=== PATIENT | female | born 1965 | race Caucasian/White ===

== ENCOUNTER → 2016-03-31 | Outpatient (CLI) | payer OTHER ==
[~2016-03-31] MED LIST: IBUP-1050 PO
--- NOTE | 2016-03-31 13:25 | MAMMOGRAPHY REPORT ---
ULTRASOUND OF RIGHT BREAST: 03/31/2016 CLINICAL HISTORY: 50-year-old woman called back from screening mammography for a lobulated 6.1 mm ma ss in the medial right breast. No family history of breast cancer. COMPARISON: Comparison is made to exams dated: 12/19/2014 mammogram, 11/21/2013 mammogram - [facility], 06/03/2007 mammogram, 04/08/2004 mammogram - [facility], and 2016 mammogram - [facility]. FINDINGS: Real-time high-resolution sonographic evaluation was performed in the medial right breast . In the 3:00 periareolar breast, there is a microlobulated isoechoic solid mass measuring 3.6 x 2. 7 x 5.5 mm. No significant increased internal vascularity. An oval parallel circumscribed hypoecho ic solid versus cystic mass is identified in the 3:00 right breast, 1 cm from the nipple, measuring 5.2 x 1.6 x 2.7 mm. A microlobulated hypoechoic solid versus cystic mass is identified in the 2:00 right breast, 2 cm from the nipple, measuring 5.3 x 2.3 x 3.3 mm. A benign anechoic simple cyst is seen in the 12:00 right breast, 3 cm from the nipple, measuring 3.6 x 2.4 x 5.5 mm. Ultrasound-guid ed core needle biopsy is recommended for the solid mass in the 3:00 periareolar right breast and als o the indeterminate microlobulated solid versus cystic mass in the 2:00 right breast. IMPRESSION: ACR BI-RADS CATEGORY 4B: INTERMEDIATE SUSPICION FOR MALIGNANCY - FOLLOW-UP RECOMMENDED 1. Ultrasound guided core needle biopsy is recommended for a solid microlobulated 5.5 mm mass in th e 3:00 periareolar right breast, and for another solid versus cystic hypoechoic microlobulated 5.3 m m mass in the 2:00 right breast, 2 cm from the nipple. Correlation with post procedure mammograms i s recommended to assess for mammographicsonographic correlation of the mass identified on the 03/23 screening mammogram. 2. Pending benign pathology results, may follow-up the other more cystic-appearing mass in the 3:00 right breast, 1 cm from the nipple in 6 months. 3. In anechoic benign simple cyst is identified in the 12:00 right breast incidentally on ultrasoun d. These results and recommendations were discussed with the patient at the time of the exam. She tent atively scheduled the right breast biopsies prior to leaving our department. Esperanza August M.D. ay/:03/31/2016 09:39:25 Seed Sales Manager: Dr. Esperanza August, [facility] letter sent: Abnormal 4/5 BI-RADS Code: ACR BI-RADS Category 4B: Intermediate Suspicion For Malignancy
== END | disposition home or self-care (01) ==
LOC: C.MAMM 08:14
PROVIDERS: ATTEND Nurse Practitioner Adult Health
DX: N63 Unspecified lump in breast (principal); N60.01 Solitary cyst of right breast

== ENCOUNTER → 2016-04-07 | Outpatient (CLI) | payer OTHER ==
--- NOTE | 2016-04-07 10:32 | Discharge Instructions ---
Discharge Instructions Procedure Procedure Date: Apr 07, 2016. Reason for visit: Right Masses. Discharge Discharge Date: Apr 07, 2016. Discharge Diagnosis: post right breast ultrasound guided core biopsy and cyst aspiration Instructions Activity Recommendations: Additional Limitations (see below) Return to School/Work: no limitations Recommended Home Diet: No Limitations Provider Instructions: ACTIVITY RECOMMENDATIONS: * No lifting, pushing, pulling or exercising the affected side for three days. RETURN TO SCHOOL/WORK: * You may return to work/school after the procedure, but do not perform any strenuous activities for 24 to 48 hours. MEDICATIONS: * Tylenol (two 325 mg) every four to six hours if needed for mild pain (if not allergic to Tylenol). DIET: * Resume previous diet. SPECIAL CARE INSTRUCTIONS: * Keep biopsy site dry for 24 hours. May shower after 24 hours, but do not soak (bathe) incision. * May remove Tegaderm (plastic patch) tomorrow AFTER showering. * Leave the steri-strips on for one week. Allow the steri-strips to fall off by themselves. If not off after one week, you may remove them. You may place a Bandaid crosswise over the strips, if desired. * Apply ice 10 minutes on and 10 minutes off as needed. * Wear a bra at bedtime to sleep more comfortably for 2-3 days. * Your referring physician should have the results after approximately 5 to 7 business days. * Call for unusual bleeding, fever, drainage, etc or if you have any questions call [phone] during normal business hours or after hours call Dr August, . FOLLOW UP VISIT: Follow-up with Referring Physician as scheduled. Allergies Coded Allergies: Sulfa Antibiotics (Verified Allergy, Unknown, hives, 07/14/15) Karson Bryan Recommendations: Call your doctor if: * Temperature above 101 degrees * Pain not relieved by pain medicine ordered * There is increased drainage or redness from any incision * You have any unanswered questions or concerns. Your Doctors Instructions noted above were prepared by provider Esperanza August. Patient Signature Section: Patient Instructions Signature Page Tabby Douglass Patient (or Guardian) Signature/Date: I have read and understand the instructions given to me by my caregivers. Caregiver/RN/Doctor Signature/Date: The above-named patient and/or guardian has received patient instructions on this date. + Original Patient Signature Page (only) stays with chart. Please make copy for patient.
--- NOTE | 2016-04-07 13:29 | MAMMOGRAPHY REPORT ---
ASPIRATION: 04/07/2016 CLINICAL HISTORY: Solid versus cystic mass in the 2:00 left breast. Patient presents for attempted cyst aspiration versus core biopsy. Please refer to the report from left breast ultrasound-guided core biopsy performed at the same time for full detail. IMPRESSION: ASPIRATION Please refer to the report from left breast ultrasound-guided core biopsy performed at the same time for full detail. Esperanza August M.D. ay/:04/07/2016 12:18:48 Watermelon Inspector: Cassi SHIELDS)(M), [facility]
--- NOTE | 2016-04-07 13:29 | MAMMOGRAPHY REPORT ---
UNILATERAL RIGHT DIGITAL DIAGNOSTIC MAMMOGRAM TOMOSYNTHESIS: 04/07/2016 CLINICAL HISTORY: Status post right breast cyst aspiration and ultrasound-guided core biopsy. Please refer to the report from right breast ultrasound guided core biopsy performed at the same mely e for full detail. IMPRESSION: ACR-BI-RADS CATEGORY 3: PROBABLY BENIGN Please refer to the report from right breast ultrasound guided core biopsy performed at the same mely e for full detail. Approximately 10% of breast cancers are not detected with mammography. A negative mammographic repor t should not delay biopsy if a clinically suggestive mass is present. Esperanza August M.D. ay/:04/07/2016 11:03:40 Tailman: Cassi SHIELDS)(M), [facility] BI-RADS Code: ACR-BI-RADS Category 3: Probably Benign
--- NOTE | 2016-04-07 13:29 | MAMMOGRAPHY REPORT ---
THIS REPORT HAS BEEN AMENDED. MULTIPLE ULTRASOUND GUIDED BIOPSIES RIGHT BREAST: 04/07/2016 CLINICAL HISTORY: 50-year-old woman presents for ultrasound-guided core biopsy of indeterminate mass es in the 3:00 periareolar right breast and 2:00 right breast, 2 cm from the nipple. COMPARISON: Comparison is made to exams dated: 03/31/2016 ultrasound, 03/23/2016 mammogram, 5 mammogram, and 11/21/2013 mammogram - [facility]. PATIENT CONSENT: The procedure, risks and benefits were discussed with the patient and informed writ ten consent was obtained. Specific risks to this procedure include: bleeding, infection, puncture of adjacent structure, nontarget biopsy, sampling error, metal allergy and medication reaction. PROCEDURE DESCRIPTION: A time out was performed and the right breast was agreed as the site of biops y. First repeat targeted ultrasound was performed in the 2:00 and 3:00 axes of the right breast to reev aluate the masses as previously described. The lobulated parallel mass in the 2:00 right breast kalyan ears more anechoic compared to the ultrasound dated 03/31/2016, and thin internal septations are jama ntified. This suggests that it represents a cyst and ultrasound guided cyst aspiration will be atte mpted prior to core biopsy. The isoechoic lobulated solid mass in the 3:00 periareolar right breast is again identified and appears similar to the prior exam. Ultrasound guided core biopsy will be p erformed. The skin was prepped and draped in the usual sterile fashion. The cystic appearing nearly anechoic m ass in the 2:00 right breast was identified. 1% buffered lidocaine without epinephrine was administ ered subcutaneously and intraparenchymally as local anesthesia. A 22-gauge needle was then advanced into the mass and aspiration was performed, demonstrating complete and prompt resolution of the mas s, confirming cystic nature. The fluid was clear and straw-colored, therefore discarded. Then the solid mass in the 3:00 periareolar/subareolar right breast was identified and targeted for biopsy. 1% buffered lidocaine without epinephrine was administered as local anesthesia. No epineph rine was utilized given the location directly under the nipple. A small skin incision was made in t he breast. Then, 3 samples were obtained with a 14-gauge achieve biopsy device. Due to bleeding, t he lesion became obscured after the third sample and then a metallic marker was placed at the biopsy site. The samples were sent to the pathology department in an appropriately labeled container. Postproced ure right CC and ML tomosynthesis images were performed. Based on the CC view, there is resolution of the 6 mm mammographic mass in question, within the medial middle one third of the breast. This c onfirms that this correlated with the aspirated cyst in the 2:00 axis. A new ribbon-shaped metallic biopsy marker is seen in the subareolar right breast and there is surrounding skin thickening, like ly secondary to lidocaine administration. No obvious mass is identified, but the mass seen on ultra sound was not definitely seen on the prior diagnostic mammogram images either. Pending benign patho logy results, would recommend follow-up right mammograms including tomosynthesis images and repeat t argeted ultrasound to ensure stability in 6 months. IMPRESSION: ULTRASOUND GUIDED BIOPSY Status post ultrasound-guided cyst aspiration in the 2:00 right breast, and ultrasound-guided core b iopsy of an indeterminate solid mass in the 3:00 periareolar/subareolar right breast. Ribbon-shaped metallic biopsy marker was placed at the site of the core biopsy. Pending benign pathology results, follow-up diagnostic right mammography and repeat targeted ultraso und is recommended to ensure stability other solid versus cystic masses in the 2:00 and 3:00 right b reast, as well as to reevaluate the biopsied mass in the 3:00 periareolar/subareolar right breast. The patient will receive notification of the biopsy results from her referring physician. Esperanza August M.D. ay/:04/07/2016 12:29:31 Waste Water Operator: Cassi SHIELDS)(Josie), [facility] AMENDMENT: 04/16/2016 Esperanza August M.D. Pathology from ultrasound-guided core needle biopsy in the 3:00 periareolar/subareolar right breast yielded benign breast tissue. Negative for in situ and invasive carcinoma. The comment section of the pathology report "the appearance is very vaguely fibroadenomatoid but may simply represent benig n breast tissue with slightly dense stroma". The pathology results are concordant with the imaging appearance, as the mass in the 3:00 axis could represent a fibroadenoma or focal stromal fibrosis ba sed on imaging. Nevertheless, a short interval follow-up right mammogram including tomosynthesis im ages and repeat targeted ultrasound is recommended to ensure stability in 6 months.
== END | disposition home or self-care (01) ==
LOC: C.MAMM 09:04
PROVIDERS: ATTEND Nurse Practitioner Adult Health
DX: N63 Unspecified lump in breast (principal)

== ENCOUNTER → 2016-04-09 | Outpatient (CLI) | payer OTHER | END | disposition home or self-care (01) | LOC: C.LAB 10:06 | PROVIDERS: ATTEND Nurse Practitioner Adult Health | DX: Z12.11 Encounter for screening for malignant neoplasm of colon (principal) ==

== ENCOUNTER → 2016-10-14 | Outpatient (CLI) | payer OTHER ==
--- NOTE | 2016-10-14 12:24 | MAMMOGRAPHY REPORT ---
UNILATERAL RIGHT DIGITAL DIAGNOSTIC MAMMOGRAM TOMOSYNTHESIS WITH CAD AND TARGETED RIGHT ULTRASOUND: CLINICAL HISTORY: History of ultrasound-guided biopsy of a right 3:00 breast mass March 2016 which yielded benign pathology. Also status post aspiration of a right 2:00 breast cyst at that time. The patient presents for short interval follow-up. TECHNIQUE: Breast tomosynthesis in addition to standard 2D mammography was performed. Current study was also evaluated with a Computer Aided Detection (CAD) system. Right CC and MLO 2-D and tomosynthe sis images were obtained. COMPARISON: Comparison is made to exams dated: 04/07/2016 aspiration, 04/07/2016 mammogram, 04/07/2016 ultrasound biopsy, 03/31/2016 ultrasound, 03/23/2016 mammogram, and 12/19/2014 mammogram - [facility]. BREAST COMPOSITION: The tissue of the right breast is heterogeneously dense, which may obscure small masses. FINDINGS: A biopsy marker clip is seen within the right medial anterior breast from prior benign ult rasound guided biopsy. There is a lobulated circumscribed 6 mm mass within the right upper inner susan drant at approximately 2 to 3:00, which is stable to slightly decreased compared to the March 2016 exam. The remainder of the right breast is stable compared to prior exams, without suspicious masses , calcifications, or areas of architectural distortion noted. Scattered benign-appearing calcificati ons are stable. Targeted ultrasound was performed of the right breast in the region of the previously seen masses. A n oval circumscribed anechoic benign simple cyst measuring 4 x 5 mm is seen within the right 3:00 per iareolar breast. In the right breast at 2:00, 3 cm from the nipple, there is an oval circumscribed a nechoic mass with a few thin internal septations measuring 5 x 3 x 4 mm. This is stable in size comp ared to the March 2016 ultrasound where the mass measured 5 x 2 x 3 mm. This corresponds with the mammographic mass; this mass was previously aspirated to completion March 2016 and is therefore con sistent with a benign cyst which has reaccumulated. Another anechoic benign cyst measuring 4 x 5 mm is seen within the right breast at 1:00, 4 cm from the nipple. No suspicious solid masses were evide nt. IMPRESSION: ACR BI-RADS CATEGORY 2: BENIGN, TARGETED ULTRASOUND ACR BI-RADS CATEGORY 2: BENIGN Small benign cysts in the right 1 to 3:00 breast. The previously aspirated right 2:00 breast cyst menchaca s reaccumulated; given that it previously aspirated to completion, it is consistent with a benign cys t. There is no mammographic or targeted sonographic evidence of malignancy. Return to annual mammogr am screening schedule is recommended, due March 2017. The patient has been verbally notified of th e results. Approximately 10% of breast cancers are not detected with mammography. A negative mammographic report should not delay biopsy if a clinically suggestive mass is present. Nisreen Miranda M.D. ah/:10/14/2016 11:15:20 Mutuel Cashier: Polly ENCINAS(Kristen)(M), [facility] letter sent: Normal 1/2 BI-RADS Code: ACR BI-RADS Category 2: Benign Ultrasound BI-RADS: ACR BI-RADS Category 2: Benign
== END | disposition home or self-care (01) ==
LOC: C.MAMM 10:05
PROVIDERS: ATTEND Nurse Practitioner Adult Health
DX: R92.8 Other abnormal and inconclusive findings on diagnostic imaging of breast (principal); N64.89 Other specified disorders of breast

== ENCOUNTER → 2017-01-04 | Outpatient (CLI) | payer OTHER | END | disposition home or self-care (01) | LOC: C.MAMM 07:50 | PROVIDERS: ATTEND Nurse Practitioner Adult Health | DX: M81.0 Age-related osteoporosis without current pathological fracture (principal); M85.851 Other specified disorders of bone density and structure, right thigh ==

== ENCOUNTER → 2017-03-31 | Outpatient (CLI) | payer OTHER ==
[2017-03-31 10:29] LABS: BLOOD UREA NITROGEN 13 mg/dl (7-18); CALCIUM 9.1 mg/dl (8.5-10.1); CARBON DIOXIDE 30 mmol/L (21-32); CREATININE 0.76 mg/dl (0.60-1.20); GLUCOSE 87 mg/dl (70-99); POTASSIUM 4.2 mmol/L (3.5-5.1); SODIUM 137 mmol/L (136-145)
[2017-03-31 10:34] LABS: CHOLESTEROL 181 mg/dl (0-200); LDL CHOLESTEROL CALCULATED 76 mg/dl
== END | disposition home or self-care (01) ==
LOC: C.LAB 06:13
PROVIDERS: ATTEND Family Medicine
DX: Z00.00 Encounter for general adult medical examination without abnormal findings (principal); Z11.59 Encounter for screening for other viral diseases; Z13.220 Encounter for screening for lipoid disorders; M81.0 Age-related osteoporosis without current pathological fracture

== ENCOUNTER → 2017-04-09 | Outpatient (CLI) | payer OTHER ==
--- NOTE | 2017-04-12 07:41 | MAMMOGRAPHY REPORT ---
BILATERAL DIGITAL SCREENING MAMMOGRAM TOMOSYNTHESIS WITH CAD: 04/09/2017 CLINICAL HISTORY: Routine screening. Patient has no complaints. TECHNIQUE: Breast tomosynthesis in addition to standard 2D mammography was performed. Current study was also evaluated with a Computer Aided Detection (CAD) system. COMPARISON: Comparison is made to exams dated: 10/14/2016 ultrasound, 04/07/2016 aspiration, 04/07/2016 mammogram, 04/07/2016 ultrasound biopsy, 03/31/2016 ultrasound, and 03/23/2016 mammogram - [facility]. BREAST COMPOSITION: The tissue of both breasts is heterogeneously dense, which may obscure small mas ses. FINDINGS: No suspicious masses, calcifications, or areas of architectural distortion are noted in ei ther breast. There has been no significant interval change compared to prior exams. Bilateral benign -appearing calcifications are again noted. A biopsy marker clip is again noted within the right lowe r inner anterior breast. IMPRESSION: ACR BI-RADS CATEGORY 2: BENIGN There is no mammographic evidence of malignancy. A 1 year screening mammogram is recommended. The pa tient will receive written notification of the results. Approximately 10% of breast cancers are not detected with mammography. A negative mammographic report should not delay biopsy if a clinically suggestive mass is present. Nisreen Miranda M.D. /:04/09/2017 14:20:47 Motorcycle Fabricator: Polly Barajas, [facility] letter sent: Normal /2 BI-RADS Code: ACR BI-RADS Category 2: Benign
== END | disposition home or self-care (01) ==
LOC: C.MAMM 14:00
PROVIDERS: ATTEND Family Medicine
DX: Z12.31 Encounter for screening mammogram for malignant neoplasm of breast (principal)

== ENCOUNTER → 2017-06-21 | Outpatient (CLI) | payer OTHER ==
[2017-06-21 17:00] LABS: BASO % 0.5 %; BASO ABS # 0.02 K/uL (0-0.2); EOS ABS # 0.04 K/uL (0-0.5); HEMOGLOBIN 13.5 g/dL (12.0-16.0); IG# 0.01 K/uL (0.00-0.02); LYMPH ABS # 1.89 K/uL (1.2-3.4); MEAN CELL VOLUME 91.5 fL (80-100); MEAN CORPUSCULAR HEMOGLOBIN 31.7 pg (25-34); MEAN CORPUSCULAR HGB CONC 34.6 g/dl (32-36); MEAN PLATELET VOLUME 10.4 fL (7.4-10.4); MONO % 6.7 %; MONO ABS # 0.26 K/uL (0.11-0.59); NEUT % 42.5 %; NEUT ABS # 1.64 K/uL (1.4-6.5); PLATELET COUNT 162 K/uL (130-400); RED CELL DISTRIBUTION WIDTH CV 12.3 % (11.5-14.5); RED CELL DISTRIBUTION WIDTH SD 41.2 fL (36.4-46.3); WHITE BLOOD COUNT 3.86 K/uL (4.8-10.8)
[2017-06-21 17:20] LABS: ALBUMIN 4.3 gm/dl (3.4-5.0); ALT/SGPT 26 U/L (12-78); AST/SGOT 18 U/L (15-37); BLOOD UREA NITROGEN 16 mg/dl (7-18); CALCIUM 9.2 mg/dl (8.5-10.1); CARBON DIOXIDE 26 mmol/L (21-32); CREATININE 0.77 mg/dl (0.60-1.20); GLUCOSE 95 mg/dl (70-99); POTASSIUM 3.8 mmol/L (3.5-5.1); SODIUM 138 mmol/L (136-145)
[2017-06-21 17:30] LABS: ALKALINE PHOSPHATASE 60 U/L (45-117); TOTAL PROTEIN 7.1 gm/dl (6.4-8.2)
== END | disposition home or self-care (01) ==
LOC: C.LABPBG 15:34
PROVIDERS: ATTEND Physician Assistant
DX: R14.0 Abdominal distension (gaseous) (principal); R53.83 Other fatigue

== ENCOUNTER → 2017-06-24 | Outpatient (CLI) | payer OTHER ==
--- NOTE | 2017-06-24 07:37 | DIAGNOSTIC IMAGING REPORT ---
GALLBLADDER-ABD LIMITED CLINICAL HISTORY: R14.0 Abdominal [id number] pain. Nausea. TECHNIQUE: Ultrasound COMPARISON STUDY: None FINDINGS: Normal gallbladder. Common bile duct 3 mm. Liver is uniform in appearance. Pancreas and right kidney are unremarkable. No evidence renal hydronephrosis. IMPRESSION: Normal study The above report was generated using voice recognition software. It may contain grammatical, syntax or spelling errors. Electronically signed by: Bar Mooney M.D. 06/24/2017 7:35 AM Dictated Date/Time: 06/24/2017 7:34 AM
== END | disposition home or self-care (01) ==
LOC: C.ULTR 07:01
PROVIDERS: ATTEND Physician Assistant
DX: R14.0 Abdominal distension (gaseous) (principal)

== ENCOUNTER → 2017-07-08 | Outpatient (CLI) | payer OTHER ==
[~2017-07-08] MED LIST changes: +OPTIRAY 320 IV PRN
--- NOTE | 2017-07-08 08:20 | DIAGNOSTIC IMAGING REPORT ---
ABD/PELVIS IV AND ORAL CONT CT DOSE: 309.09 mGy.cm HISTORY: Pain. Nausea. PAIN UPPER ABDOMINAL, RUQ AB PAIN, UPPER BACK PAIN TECHNIQUE: Multiaxial CT images of the abdomen and pelvis were performed following the use of intravenous and oral contrast. A dose lowering technique was utilized adhering to the principles of ALARA. COMPARISON STUDY: None. FINDINGS: The lung bases are clear. The liver, spleen, gallbladder, pancreas, kidneys, and adrenal glands are within normal limits. No bowel wall thickening or obstruction. The pelvic organs are unremarkable. No suspicious lytic or blastic osseous lesions. IMPRESSION: No significant abnormality identified within the abdomen or pelvis. The above report was generated using voice recognition software. It may contain grammatical, syntax or spelling errors. Electronically signed by: Bar Mooney M.D. 07/08/2017 8:19 AM Dictated Date/Time: 07/08/2017 8:17 AM
== END | disposition home or self-care (01) ==
LOC: C.CTS 07:24
PROVIDERS: ATTEND Nurse Practitioner Family
DX: R10.11 Right upper quadrant pain (principal); M54.9 Dorsalgia, unspecified